=== PATIENT | male | born 1970 ===

== ENCOUNTER 2018-02-13 13:52 | Emergency (ER) | payer SELFPAY ==
[2018-02-13 15:09] VITALS: BP 125/81
--- NOTE | 2018-02-13 15:17 | RAD ---
Indication: RIGHT thumb pain following traumatic twisting injury. Comparison: No relevant prior exams available on the [facility] for comparison. Technique: AP, lateral, and oblique views RIGHT thumb. REPORT AND IMPRESSION: Normal articular alignment. Negative for fracture. Mild nonfocal soft tissue swelling. No conspicuous foreign body or subcutaneous emphysema.
--- NOTE | 2018-02-13 16:36 | UC ---
Upper Extremity HPI - HPI Summary HPI Summary: Patient is an otherwise healthy 47-year-old male presenting to the with chief complaint of right thumb pain at the MCP joint after stretching the thumb backwards from an accident with a machine from work 1/2 hour prior to arrival, most likely involving the ulnar collateral ligament. Unable to abduct or adduct at the MCP joint. He is able to flex and extend without pain. Denies any numbness, tingling, color or temperature changes to the area. He denies any other injuries at this time. - History of Current Complaint Chief Complaint: UCUpperExtremity Stated Complaint: THUMB INJURY Time Seen by Provider: 02/13/18 14:52 Hx Obtained From: Patient ?: No Onset/Duration: Sudden Onset Severity Initially: Moderate Severity Currently: Moderate Pain Intensity: 5 Pain Scale Used: 0-10 Numeric Location Of Pain: Is Discrete @ - MCP joint of the R thumb Aggravating Factor(s): Movement, Lifting, Flexion, Extension, Internal/External Rotation Associated Signs And Symptoms: Positive: Negative Related History: Dominant Hand Right - Risk Factors Non-Orthopedic Risk Factor: Negative DVT Risk Factors: Estrogen Septic Arthritis Risk Factor: Negative Compartment Syndrome Risk Factors: Pain - Allergies/Home Medications Allergies/Adverse Reactions: Allergies Allergy/AdvReac Type Severity Reaction Status Date / Time No Known Allergies Allergy Verified 02/13/18 14:47 Home Medications: Home Medications NK [No Home Medications Reported] 02/13/18 [History Confirmed 02/13/18] PMH/Surg Hx/FS Hx/Imm Hx Previously Healthy: Yes - Surgical History Surgical History: None - Social History Occupation: Employed Full-time Lives: With Family Alcohol Use: None Substance Use Type: None Smoking Status (MU): Heavy Every Day Tobacco Smoker Type: Cigarettes Review of Systems Constitutional: Negative Skin: Negative Respiratory: Negative Cardiovascular: Negative Motor: Negative Neurovascular: Negative Musculoskeletal: Arthralgia Psychological: Negative Is Patient Immunocompromised?: No All Other Systems Reviewed And Are Negative: Yes Physical Exam Triage Information Reviewed: Yes Appearance: Well-Appearing - wake up and go to sleep, No Pain Distress, Well- Nourished Vital Signs: Initial Vital Signs Temp 98.8 F 02/13/18 14:44 Pulse 81 02/13/18 14:44 Resp 12 02/13/18 14:44 BP 125/81 02/13/18 14:44 Pulse Ox 98 02/13/18 14:44 Vital Signs Reviewed: Yes Eye Exam: Normal Eyes: Positive: Conjunctiva Clear Neck exam: Normal Neck: Positive: Supple, Nontender, No Lymphadenopathy Respiratory Exam: Normal Respiratory: Positive: Chest non-tender Cardiovascular Exam: Normal Cardiovascular: Positive: RRR Musculoskeletal Exam: Normal Musculoskeletal: Positive: Strength Intact Neurological Exam: Normal Neurological: Positive: Alert Psychological: Positive: Normal Response To Family Skin Exam: Normal Upper Extremity Course/Dx - Course Course Of Treatment: During the course of treatment, the patient is evaluated for possible ulnar ligament injury, skiers or gamekeeper's thumb after hyperextending at the MCP joint. X-rays negative for any acute findings. Thumb spica given and he is to follow-up with hand surgeon within 3 days. He agrees with this plan is okay for discharge. I have recommended ibuprofen 600mg 3 times daily and ice to the area as much as possible. - Differential Dx/Diagnosis Provider Diagnoses: Skiier's thumb Discharge - Discharge Plan Condition: Stable Disposition: HOME Patient Education Materials: Skier's Thumb (ED) Referrals: No Primary Care Phys,NOPCP [Primary Care Provider] - Additional Instructions: I believe you have a strain of the ligament This is called skiers thumb as it pulls ureter from backwards in the ligaments are injured Please follow-up with a hand surgeon as soon as possible Keep the thumb set spica splint on as much as possible You may take this off to shower Ibuprofen 600 mg 3 times daily for inflammation, do this for at least 5 days If you develop any numbness, tingling, color or temperature changes to the thumb , return to the ED or UC immediately
== END 2018-02-13 15:35 | disposition home or self-care (01) ==
LOC: UCEAST 13:52
DX: S63.641A Sprain of metacarpophalangeal joint of right thumb, initial encounter (principal); W31.9XXA Contact with unspecified machinery, initial encounter; Y93.9 Activity, unspecified; Y92.9 Unspecified place or not applicable; Y99.0 Civilian activity done for income or pay; F17.210 Nicotine dependence, cigarettes, uncomplicated
CPT/HCPCS: 99202; G0463